=== PATIENT | male | born 1965 | race Caucasian/White ===

== ENCOUNTER 2017-04-23 06:56 | Emergency (ER) | payer MEDICAID ==
--- NOTE | 2017-04-23 07:15 | C.PDOC ---
History Of Present Illness 51-year-old male, presents to the emergency department with complaints of leg pain. Patient states he was carrying out his garbage last night, during which he developed a sudden pain, described as "pulling" sensation in the back of his left leg. States he has persistent pain in the area since onset. Pt is applying ice and cream without significant relief, resulting in him coming tot he ED for evaluation. pain is worse w/ movement. No numbness/weakness, nausea/vomiting, or any other associated symptoms. No other complaints at this time. Time Seen by Provider: 04/23/17 07:05 Chief Complaint (Nursing): Lower Extremity Problem/Injury History Per: Patient History/Exam Limitations: no limitations Onset/Duration Of Symptoms: Hrs Current Symptoms Are (Timing): Still Present Severity: Moderate Past Medical History Reviewed: Historical Data, Nursing Documentation, Vital Signs Vital Signs: Last Vital Signs Temp 99 F 04/23/17 07:06 Pulse 85 04/23/17 07:06 Resp 18 04/23/17 07:06 BP 121/89 04/23/17 07:06 Pulse Ox 97 04/23/17 08:53 - Medical History PMH: HTN, Hypercholesterolemia Family History: States: No Known Family Hx - Social History Hx Alcohol Use: No Hx Substance Use: No - Immunization History Hx Tetanus Toxoid Vaccination: No Hx Influenza Vaccination: No Hx Pneumococcal Vaccination: No Review Of Systems Constitutional: Negative for: Fever, Chills Cardiovascular: Negative for: Chest Pain Respiratory: Negative for: Shortness of Breath Gastrointestinal: Negative for: Vomiting Musculoskeletal: Positive for: Leg Pain Skin: Negative for: Rash Neurological: Negative for: Weakness, Numbness, Headache, Dizziness Physical Exam - Physical Exam Appears: Non-toxic, No Acute Distress Skin: Warm, Dry, No Rash Head: Atraumatic Eye(s): bilateral: Normal Inspection Nose: Normal Oral Mucosa: Moist Lips: Normal Appearing Neck: Normal ROM, Supple Respiratory: No Accessory Muscle Use Extremity: Capillary Refill (<2 seconds), No Deformity, Other (LEFT LOWER EXT: Normal pulse. Normal strength and sensation. Patient is tender over the left ham string.) Neurological/Psych: Oriented x3 ED Course And Treatment O2 Sat by Pulse Oximetry: 97 Medical Decision Making Medical Decision Making: adrián wrap nsaid pcp follow up return if worse xr let femur: IMPRESSION: Unremarkable radiographs of the left femur. Disposition - Disposition Referrals: Blaze Medrano MD [Staff Provider] - Disposition Time: 08:54 Condition: GOOD Additional Instructions: Please follow up with your doctor. Return to the ER for any worsening symptoms or for any other concerns. Prescriptions: Naproxen [Naprosyn] 500 mg PO Q12H PRN #10 tablet PRN Reason: Pain, Moderate (4-7) Instructions: Hamstring Injury (ED) Forms: General Discharge Instructions, Work Excuse - Clinical Impression Clinical Impression: Hamstring strain - Scribe Statement Mikaela Ly All medical record entries made by the Scribe were at my direction and personally dictated by me. I have reviewed the chart and agree that the record accurately reflects my personal performance of the history, physical exam, medical decision making, and the department course for this patient. I have also personally directed, reviewed, and agree with the discharge instructions and disposition.
[2017-04-23 07:16] VITALS: RESP 18; O2SAT 97
--- NOTE | 2017-04-23 08:28 | RAD ---
PROCEDURE: Left Femur Radiographs. HISTORY: leg pain COMPARISON: None. TECHNIQUE: AP and Lateral Radiographs of the left femur. FINDINGS: FEMUR: Normal. No fracture. SOFT TISSUES: Normal. OTHER FINDINGS: None. IMPRESSION: Unremarkable radiographs of the left femur.
[2017-04-23 09:14] VITALS: BP 119/86; PULSE 81; TEMP 98.9
== END 2017-04-23 09:14 | disposition home or self-care (01) ==
LOC: C.ER 06:56
DX: S76.812A Strain of other specified muscles, fascia and tendons at thigh level, left thigh, initial encounter (principal); X50.9XXA Other and unspecified overexertion or strenuous movements or postures, initial encounter; I10 Essential (primary) hypertension; E78.00 Pure hypercholesterolemia, unspecified
CPT/HCPCS: 73552; 96372; 99284; J1885

== ENCOUNTER 2018-07-15 09:02 | Day surgery (SDC) | payer MEDICAID ==
[2018-07-14 13:41] VITALS: BMI 27.4
[2018-07-15] MEDS ORDERED: Lactated Ringer's 1,000 ML IV ONE (11:30)
[2018-07-15] MEDS ORDERED: Propofol 10 mg/ml Inj (20 ML) ONE (11:36)
[2018-07-15] MEDS ORDERED: Lidocaine 2% MPF (5 ml) Inj ONE (11:37)
[2018-07-15 12:18] VITALS: TEMP 96.6
[2018-07-15 12:37] VITALS: O2SAT 100
[2018-07-15 14:12] VITALS: BP 120/70; PULSE 68; RESP 12
== END 2018-07-15 12:50 | disposition home or self-care (01) ==
LOC: C.ENDO 09:02
PROVIDERS: ATTEND Internal Medicine Gastroenterology
DX: R19.5 Other fecal abnormalities (principal); K64.0 First degree hemorrhoids
CPT/HCPCS: 45378; J2704; J7120